=== PATIENT | female | born 1960 | race Native Hawaiian/Other Pacific Islander ===

== ENCOUNTER 2016-09-27 04:03 | Emergency (ER) | payer OTHER ==
[~2016-09-27] VITALS: Ht 165.1 cm; Wt 72.6 kg
[~2016-09-27 04:03] MED LIST: ALBU90AE13 INH; METO25TA4 PO; METO50TA27 PO; PROP10TA57 PO; REQUIP1 MG PO; SYNTHROID175 MCG PO
[2016-09-27 04:34] VITALS: TEMP 98.6
[2016-09-27 05:24] LABS: PLATELET COUNT 282 K/uL (152-353)
[2016-09-27 05:26] LABS: POTASSIUM 3.8 mmol/L (3.6-5.2)
[2016-09-27 07:00] VITALS: BP 102/50
== END 2016-09-27 07:15 | disposition home or self-care (01) ==
LOC: ED 04:03
PROVIDERS: Specialist
DX: N20.0 Calculus of kidney (principal); N39.0 Urinary tract infection, site not specified
CPT/HCPCS: 36415; 80048; 81000; 85027; 87077; 87086; 87088; 87186; 96361; 96374; 96375; 96376; 99284; J0690; J1885; J2270; J2405

== ENCOUNTER 2016-11-28 10:55 | Outpatient (CLI) | payer OTHER | END 2016-11-28 19:09 | disposition home or self-care (01) | LOC: US 10:55 | DX: Z87.442 Personal history of urinary calculi (principal) ==

== ENCOUNTER 2017-01-23 09:44 | Outpatient (CLI) | payer OTHER | END 2017-01-23 10:45 | disposition home or self-care (01) | LOC: RAD 09:44 | DX: J20.8 Acute bronchitis due to other specified organisms (principal) ==

== ENCOUNTER 2017-02-20 14:58 | Outpatient (CLI) | payer OTHER | END 2017-02-20 22:15 | disposition home or self-care (01) | LOC: CT 14:58 | DX: N20.2 Calculus of kidney with calculus of ureter (principal) ==

== ENCOUNTER 2017-11-03 12:35 | Outpatient (CLI) | payer OTHER | END 2017-11-03 22:25 | disposition home or self-care (01) | LOC: CT 12:35 | DX: N20.2 Calculus of kidney with calculus of ureter (principal) ==

== ENCOUNTER 2018-08-09 11:14 | Emergency (ER) | payer OTHER ==
[~2018-08-09] VITALS: Ht 160 cm; Wt 84.8 kg
[2018-08-09 11:20] VITALS: TEMP 97.7
[2018-08-09 11:55] LABS: PLATELET COUNT 261 K/uL (152-353)
[2018-08-09 12:22] LABS: POTASSIUM 4.4 mmol/L (3.6-5.2); SODIUM 141 mmol/L (136-145)
[2018-08-09 12:55] VITALS: BP 149/71
== END 2018-08-09 13:00 | disposition home or self-care (01) ==
LOC: ED 11:14
PROVIDERS: Emergency Medicine
DX: R07.89 Other chest pain (principal); K29.60 Other gastritis without bleeding
CPT/HCPCS: 36415; 80053; 82550; 84484; 85027; 93005; 99283; 99284

== ENCOUNTER 2018-09-06 18:41 | Emergency (ER) | payer OTHER ==
[~2018-09-06] VITALS: Ht 160 cm; Wt 84.8 kg
[2018-09-06 19:08] LABS: PLATELET COUNT 315 K/uL (152-353)
[2018-09-06 19:15] LABS: POTASSIUM 4.2 mmol/L (3.6-5.2)
[2018-09-06 20:28] VITALS: BP 139/90; TEMP 98.3
== END 2018-09-06 20:28 | disposition home or self-care (01) ==
LOC: ED 18:41
PROVIDERS: Student in an Organized Health Care Education/Training Program
DX: R51 Headache (principal); R11.2 Nausea with vomiting, unspecified
CPT/HCPCS: 36415; 80048; 81000; 85027; 96360; 96375; 99284; J1200; J1885; J2550

== ENCOUNTER 2018-09-27 09:21 | Outpatient (CLI) | payer OTHER | END 2018-09-27 23:19 | disposition home or self-care (01) | LOC: CT 09:21 | DX: R07.9 Chest pain, unspecified (principal) | CPT/HCPCS: Q9963 ==

== ENCOUNTER 2018-11-03 16:26 | Outpatient (CLI) | payer OTHER | END 2018-11-03 20:16 | disposition home or self-care (01) | LOC: RAD 16:26 | DX: J20.8 Acute bronchitis due to other specified organisms (principal) ==

== ENCOUNTER 2019-01-11 11:01 | Inpatient (IN) | payer OTHER ==
[~2019-01-11] VITALS: Ht 162.6 cm; Wt 93.2 kg
[~2019-01-11 11:01] MED LIST changes: +LEVO-T150 MCG PO; -SYNTHROID175 MCG PO
[2019-01-11 12:00] VITALS: BP 115/68; TEMP 98.7
[2019-01-11 12:54] LABS: PLATELET COUNT 265 K/uL (152-353)
[2019-01-11 13:15] LABS: POTASSIUM 3.1 mmol/L (3.6-5.2)
[2019-01-11 16:00] VITALS: BP 116/61; TEMP 98.3
[2019-01-11 18:05] VITALS: BP 115/68; TEMP 98.7; BMI 31.1
[2019-01-11 20:00] VITALS: BP 129/65; TEMP 98
[2019-01-11] MEDS ORDERED: BUDE1AER3 INH (20:24)
[2019-01-11] MEDS ORDERED: SIMV20TA2 PO (20:26)
[2019-01-11] MEDS ORDERED: BREO ELLIPTA 101 INH INH (20:27)
[2019-01-11] MEDS ORDERED: IPRATROPIUM/ INH (20:29)
[2019-01-11] MEDS ORDERED: PREDNISONE20 MG PO (20:31)
[2019-01-11] MEDS ORDERED: DALIRESP500 MC1 PO (20:33)
[2019-01-11] MEDS ORDERED: METOPROLOL SUCC1 TAB PO (20:34)
[2019-01-11] MEDS ORDERED: ONDA4TAB3 PO (20:35)
[2019-01-11] MEDS ORDERED: ALBU90AE13 INH (20:41)
[2019-01-11] MEDS ORDERED: BUTALBITAL/APAP1 CAP PO (20:42)
[2019-01-11] MEDS ORDERED: PRINIVIL10 MG PO (20:43)
[2019-01-11] MEDS ORDERED: ALLERGY RELIEF180 MG PO (20:45)
[2019-01-11] MEDS ORDERED: CYCL10TA35 PO (20:45)
[2019-01-11] MEDS ORDERED: FLONASE AL50 MCG/AC1 NAS (20:48)
[2019-01-11 21:15] VITALS: BP 156/82; BMI 37.1
[2019-01-12 00:26] VITALS: BP 154/69; TEMP 97.6
[2019-01-12 04:00] VITALS: BP 118/61; TEMP 97.5
[2019-01-12 07:54] LABS: PLATELET COUNT 267 K/uL (152-353)
[2019-01-12 08:00] VITALS: BP 146/96; TEMP 97.4
[2019-01-12 08:03] LABS: POTASSIUM 4.2 mmol/L (3.6-5.2)
[2019-01-12 12:00] VITALS: BP 133/63; TEMP 97.9
[2019-01-12 16:00] VITALS: BP 164/75; TEMP 98.4
[2019-01-12] MEDS ORDERED: METOPROLOL25 M1 PO (16:54)
[2019-01-12 20:00] VITALS: BP 132/63; TEMP 98.1
[2019-01-13] VITALS: BP 124/77; TEMP 97.7
[2019-01-13 04:00] VITALS: BP 119/69; TEMP 98.2
[2019-01-13 04:53] LABS: PLATELET COUNT 263 K/uL (152-353)
[2019-01-13 05:35] LABS: POTASSIUM 4.5 mmol/L (3.6-5.2)
[2019-01-13 08:00] VITALS: BP 131/65; TEMP 97.5
[2019-01-13 12:00] VITALS: BP 136/65; TEMP 97.8
[2019-01-13 16:00] VITALS: BP 139/63; TEMP 98.7
[2019-01-13 20:00] VITALS: BP 143/65; TEMP 98
[2019-01-14] VITALS (7 sets, daily range): BP systolic 118–167; BP diastolic 51–76; TEMP 97.8–98.1
[2019-01-14 03:55] LABS: PLATELET COUNT 240 K/uL (152-353)
[2019-01-14 04:29] LABS: POTASSIUM 4.1 mmol/L (3.6-5.2)
[2019-01-15 04:00] VITALS: BP 137/59; TEMP 97.8
[2019-01-15 05:22] LABS: PLATELET COUNT 272 K/uL (152-353)
[2019-01-15 05:49] LABS: POTASSIUM 4.4 mmol/L (3.6-5.2)
[2019-01-15 08:00] VITALS: BP 120/72; TEMP 97.8
[2019-01-15 12:00] VITALS: BP 142/60; TEMP 98.1
[2019-01-15 16:00] VITALS: BP 159/81; TEMP 98.3
[2019-01-15 20:00] VITALS: BP 125/75; TEMP 98.2
[2019-01-16 00:26] VITALS: BP 149/76; TEMP 98.5
[2019-01-16 03:59] VITALS: BP 148/72; TEMP 98.4
[2019-01-16 08:00] VITALS: BP 150/78; TEMP 98.7
[2019-01-16 08:17] LABS: PLATELET COUNT 291 K/uL (152-353)
[2019-01-16 08:24] LABS: POTASSIUM 3.7 mmol/L (3.6-5.2)
[2019-01-16 12:00] VITALS: BP 152/90; TEMP 98
[2019-01-16 16:00] VITALS: BP 160/87; TEMP 98.4
== END 2019-01-16 19:16 | disposition home or self-care (01) | DRG 190 ==
LOC: MED/SURG 11:01
PROVIDERS: ADMIT Family Medicine
DX: J44.0 Chronic obstructive pulmonary disease with (acute) lower respiratory infection (principal); J18.8 Other pneumonia, unspecified organism; J44.1 Chronic obstructive pulmonary disease with (acute) exacerbation; R09.02 Hypoxemia; G47.09 Other insomnia
CPT/HCPCS: 36415; 36600; 80053; 82805; 83735; 83880; 85027; 85379; 87040; 87070; 87077; 87205; 87899; 93005; 94640; 94645; 94664; 94668; 94760; 96365; 96366; 96367; 96375; J0132; J0456; J0696; J1885; J1940; J2060; J2270; J2405; J2920; J2930

== ENCOUNTER 2019-09-09 10:11 | Outpatient (CLI) | payer OTHER ==
[~2019-09-09 10:11] MED LIST changes: +ALLERGY RELIEF180 MG PO; +BREO ELLIPTA 101 INH INH; +BUDE1AER3 INH; +BUTALBITAL/APAP1 CAP PO; +CYCL10TA35 PO; +DALIRESP500 MC1 PO; +FLONASE AL50 MCG/AC1 NAS; +IPRATROPIUM/ INH; +METOPROLOL SUCC1 TAB PO; +METOPROLOL25 M1 PO; +ONDA4TAB3 PO; +PREDNISONE20 MG PO; +PRINIVIL10 MG PO; +SIMV20TA2 PO
== END 2019-09-09 23:05 | disposition home or self-care (01) ==
LOC: RAD 10:11
PROVIDERS: ATTEND Nurse Practitioner Family
DX: J44.1 Chronic obstructive pulmonary disease with (acute) exacerbation (principal)

== ENCOUNTER 2020-07-16 12:16 | Outpatient (CLI) | payer OTHER ==
[2020-07-16 12:29] LABS: PLATELET COUNT 237 K/uL (152-353)
[2020-07-16 12:37] LABS: POTASSIUM 3.9 mmol/L (3.6-5.2); SODIUM 142 mmol/L (136-145)
== END 2020-07-16 21:00 | disposition home or self-care (01) ==
LOC: LABW 12:16 → RAD 12:16 → LABW 21:00
PROVIDERS: ATTEND Nurse Practitioner Family
DX: R07.9 Chest pain, unspecified (principal)
CPT/HCPCS: 36415; 80053; 82550; 82553; 84484; 85027

== ENCOUNTER 2020-08-09 08:22 | Outpatient (CLI) | payer OTHER ==
[~2020-08-09] VITALS: Ht 30.5 cm; Wt 0.5 kg
== END 2020-08-09 22:49 | disposition home or self-care (01) ==
LOC: NM 08:22
PROVIDERS: ATTEND Nurse Practitioner Family
DX: R07.89 Other chest pain (principal)
CPT/HCPCS: A9500; J2785

== ENCOUNTER 2020-12-17 11:32 | Outpatient (CLI) | payer OTHER ==
[2020-12-17 12:07] LABS: PLATELET COUNT 253 K/uL (152-353)
== END 2020-12-17 19:07 | disposition home or self-care (01) ==
LOC: LABW 11:32
PROVIDERS: ATTEND Nurse Practitioner Family
DX: J20.8 Acute bronchitis due to other specified organisms (principal)
CPT/HCPCS: 36415; 85027; 87651

== ENCOUNTER 2021-05-27 09:50 | Outpatient (CLI) | payer BC ==
[2021-05-27 10:07] LABS: PLATELET COUNT 234 K/uL (152-353)
[2021-05-27 10:22] LABS: POTASSIUM 4.5 mmol/L (3.6-5.2)
== END 2021-05-27 19:09 | disposition home or self-care (01) ==
LOC: LABW 09:50
PROVIDERS: ATTEND Nurse Practitioner Family
DX: R07.89 Other chest pain (principal)
CPT/HCPCS: 36415; 80053; 82550; 82553; 84484; 85027

== ENCOUNTER 2021-06-12 08:33 | Outpatient (CLI) | payer BC | END 2021-06-12 19:14 | disposition home or self-care (01) | LOC: RESP 08:33 | PROVIDERS: ATTEND Nurse Practitioner Family | DX: R07.89 Other chest pain (principal) ==

== ENCOUNTER 2021-06-13 07:53 | Outpatient (CLI) | payer BC ==
[~2021-06-13] VITALS: Ht 160 cm; Wt 88.0 kg
== END 2021-06-13 19:07 | disposition home or self-care (01) ==
LOC: NM 07:53
PROVIDERS: ATTEND Nurse Practitioner Family
DX: R07.89 Other chest pain (principal)
CPT/HCPCS: A9500; J2785

== ENCOUNTER 2021-12-04 10:34 | Outpatient (CLI) | payer OTHER | END 2021-12-04 19:33 | disposition home or self-care (01) | LOC: US 10:34 | PROVIDERS: ATTEND Nurse Practitioner Family | DX: R41.3 Other amnesia (principal) ==

== ENCOUNTER 2022-01-27 09:33 | Outpatient (CLI) | payer OTHER ==
[2022-01-27 10:11] LABS: PLATELET COUNT 268 K/uL (152-353)
[2022-01-27 10:25] LABS: POTASSIUM 4.4 mmol/L (3.6-5.2)
== END 2022-01-27 19:34 | disposition home or self-care (01) ==
LOC: LABW 09:33
PROVIDERS: ATTEND Nurse Practitioner Family
DX: N20.2 Calculus of kidney with calculus of ureter (principal); R10.32 Left lower quadrant pain
CPT/HCPCS: 36415; 80053; 85027

== ENCOUNTER 2022-03-19 09:15 | Emergency (ER) | payer OTHER ==
[~2022-03-19] VITALS: Ht 160 cm; Wt 88.0 kg
[2022-03-19 09:15] VITALS: TEMP 97.5
[2022-03-19 10:00] LABS: PLATELET COUNT 287 K/uL (152-353)
[2022-03-19 10:07] LABS: POTASSIUM 4.4 mmol/L (3.6-5.2)
[2022-03-19 12:54] VITALS: BP 122/57
== END 2022-03-19 13:02 | disposition home or self-care (01) ==
LOC: ED 09:19
PROVIDERS: Emergency Medicine Emergency Medical Services
DX: R07.89 Other chest pain (principal)
CPT/HCPCS: 36415; 80053; 83735; 83880; 84484; 85027; 85379; 85610; 93005; 94664; 96360; 96361; 99284

== ENCOUNTER 2022-04-09 15:08 | Outpatient (CLI) | payer OTHER | END 2022-04-09 18:59 | disposition home or self-care (01) | LOC: RAD 15:08 | PROVIDERS: ATTEND Nurse Practitioner Family | DX: M54.17 Radiculopathy, lumbosacral region (principal) ==

== ENCOUNTER 2022-05-09 10:22 | Outpatient (CLI) | payer OTHER | END 2022-05-09 19:15 | disposition home or self-care (01) | LOC: US 10:22 | PROVIDERS: ATTEND Nurse Practitioner Family | DX: I72.1 Aneurysm of artery of upper extremity (principal) ==

== ENCOUNTER 2022-05-14 07:15 | Emergency (ER) | payer OTHER ==
[~2022-05-14] VITALS: Ht 160 cm; Wt 91.6 kg
[2022-05-14 07:15] VITALS: TEMP 97.6
[2022-05-14 07:42] LABS: PLATELET COUNT 249 K/uL (152-353)
[2022-05-14 07:46] LABS: POTASSIUM 4.5 mmol/L (3.6-5.2)
[2022-05-14 08:24] VITALS: BP 120/66
== END 2022-05-14 08:25 | disposition home or self-care (01) ==
LOC: ED 07:15
PROVIDERS: Emergency Medicine
DX: R00.2 Palpitations (principal); R07.89 Other chest pain; R00.1 Bradycardia, unspecified; Z98.890 Other specified postprocedural states
CPT/HCPCS: 80053; 80307; 83880; 84484; 85027; 93005; 99283